=== PATIENT | female | born 1990 | race Caucasian/White ===

== ENCOUNTER 2019-03-26 15:46 | Emergency (ER) | payer OTHER ==
[~2019-03-26] VITALS: Ht 157.5 cm; Wt 88.0 kg
[2019-03-26 16:07] VITALS: BP 136/76
--- NOTE | 2019-03-26 17:33 | NUR ---
PT TO BED 10 WITH STEADY GAIT
--- NOTE | 2019-03-26 17:42 | NUR ---
PT RETURNED FROM XRAY, SITTING IN CHAIR C
--- NOTE | 2019-03-26 17:49 | NUR ---
PT MOVED TO BED 1.
--- NOTE | 2019-03-26 18:23 | NUR ---
pt arrived to ed c/o cough, congestion, chest pain d/t cough x 2 weeks. no sob noted. no resp distress. vs stable. lung sounds clear throughout. nka. no pmh. denies any pain.
[2019-03-26 18:52] VITALS: BP 136/76
--- NOTE | 2019-03-26 18:53 | NUR ---
Patient discharged with v/s stable. Written and verbal after care instructions given and explained. Patient alert, oriented and verbalized understanding of instructions. Ambulatory with steady gait. All questions addressed prior to discharge. ID band removed. Patient advised to follow up with PMD. Rx of SUDAFED, TESSATNAM POWELL, ALBUTEROL given. Patient educated on indication of medication including possible reaction and side effects. Opportunity to ask questions provided and answered.
== END 2019-03-26 18:53 | disposition home or self-care (01) ==
LOC: MED 15:46
DX: R05 Cough (principal)
CPT/HCPCS: 71046; 99283; Q0092

== ENCOUNTER 2019-11-20 12:47 | Emergency (ER) | payer OTHER ==
[~2019-11-20] VITALS: Ht 157.5 cm; Wt 79.4 kg
[2019-11-20 12:50] VITALS: BP 146/96
--- NOTE | 2019-11-20 13:00 | NUR ---
WAIT AT LOBBY. HANDED ON URINE CUP.
--- NOTE | 2019-11-20 13:58 | NUR ---
PT AMBULATED TO BED C
--- NOTE | 2019-11-20 13:59 | NUR ---
Pt taken to critical access hospital bed C.
--- NOTE | 2019-11-20 14:10 | NUR ---
29 Y/O FROM HOME C/O CHEST DISCOMFORT AND LT ARM DISCOMFORT WITH INTERMITTENT SOB X 2 WKS. PT STATES SHE FEELS MORE ANXIOUS THAN USUAL. RR EVEN AND UNLABORED, SITTING UPRIGHT AWAKE AND ALERT. VSS
--- NOTE | 2019-11-20 14:41 | NUR ---
PT SITTING UPRIGHT AWAKE AND ALERT. RR EVEN AND UNLABORED. VSS
--- NOTE | 2019-11-20 14:54 | NUR ---
PT DISCHARED AND LEFT WITHOUT PAPERWORK. GIVEN PRESCRIPTION FOR IBUPROFEN 600MG, LEFT WITHOUT RECEIVING PRESCRIPTION. VSS PRIOR TO PT LEAVING FACILITY
[2019-11-20 14:55] VITALS: BP 136/84
== END 2019-11-20 14:54 | disposition home or self-care (01) ==
LOC: MED 12:47
DX: R07.9 Chest pain, unspecified (principal); R03.0 Elevated blood-pressure reading, without diagnosis of hypertension
CPT/HCPCS: 71045; 93005; 99283

== ENCOUNTER 2020-09-17 21:19 | Emergency (ER) | payer OTHER ==
[~2020-09-17] VITALS: Ht 157.5 cm; Wt 85.5 kg
[2020-09-17 21:25] VITALS: BP 144/101
--- NOTE | 2020-09-17 21:36 | NUR ---
PT AMBULATED TO ED BED 5.
--- NOTE | 2020-09-17 21:48 | NUR ---
Dr. Espinoza examining patient.
[2020-09-17] MEDS ORDERED: LORazepam 2 MG/ML VIAL ONE (22:13)
--- NOTE | 2020-09-17 22:14 | NUR ---
X-Ray at bedside.
[2020-09-17 22:16] LABS: BASOPHILS # (AUTO) 0.1 K/uL (0.00-0.22); BASOPHILS % (AUTO) 1.2 % (0.0-2.0); EOSINOPHILS # (AUTO) 0.2 K/uL (0-0.4); EOSINOPHILS % (AUTO) 2.9 % (0.0-4.0); HEMATOCRIT 39.4 % (36-48); HEMOGLOBIN 13.2 g/dL (12.0-16.0); LYMPHOCYTES # (AUTO) 2.3 K/uL (2.5-16.5); MEAN CORPUSCULAR HEMOGLOBIN 28 pg (27-31); MEAN CORPUSCULAR HGB CONC 34 g/dL (33-37); MEAN CORPUSCULAR VOLUME 83.1 fL (80-94); MONOCYTES # (AUTO) 0.4 K/uL (0.8-1.0); MONOCYTES % (AUTO) 6.9 % (1.7-9.3); NEUTROPHILS # (AUTO) 3.4 K/uL (1.8-7.7); PLATELET COUNT (AUTO) 404 K/uL (140-450); RED BLOOD CELL COUNT(AUTO) 4.75 MIL/uL (4.20-5.40); RED CELL DISTRIBUTION WIDTH 13.2 % (11.6-13.7); WHITE BLOOD COUNT (AUTO) 6.3 K/uL (4.8-10.8)
[2020-09-17 22:31] LABS: PROTHROMBIN TIME 9.4 secs (10.8-13.4)
[2020-09-17 22:32] VITALS: BP 144/101
[2020-09-17 22:33] LABS: ALBUMIN 4.2 g/dL (3.4-5.0); ANION GAP 12.9 (8-16); CARBON DIOXIDE 27.4 mmol/L (21-32); POTASSIUM 3.3 mmol/L (3.5-5.1); TOTAL BILIRUBIN 0.3 mg/dL (0.0-1.0)
[2020-09-17 22:35] LABS: D-DIMER < 100 ng/ml (0-400)
--- NOTE | 2020-09-17 22:35 | NUR ---
see complete assessment.
--- NOTE | 2020-09-17 23:31 | NUR ---
Patient discharged with v/s stable. Written and verbal after care instructions given and explained. Patient verbalized understanding. Ambulatory with steady gait. All questions addressed prior to discharge. Advised to follow up with PMD.
== END 2020-09-17 23:31 | disposition home or self-care (01) ==
LOC: MED 21:19
DX: R00.2 Palpitations (principal); R20.0 Anesthesia of skin; R07.9 Chest pain, unspecified
CPT/HCPCS: 36415; 71045; 80053; 83880; 84484; 84703; 85025; 85379; 85610; 85730; 93005; 99285; J2060

== ENCOUNTER 2023-12-19 06:35 | Inpatient (IN) | payer OTHER ==
[~2023-12-19] VITALS: Ht 157.5 cm; Wt 73.9 kg
[2023-12-19 06:47] VITALS: BP 148/98; PULSE 116; RESP 18; TEMP 98; O2SAT 100
[2023-12-19] MEDS: NACL 0.9% 1,000 ML IV ONE ×2 (07:43→08:38)
[2023-12-19] MEDS: LORazepam 1 MG TAB PO ONE (07:43)
[2023-12-19 07:45] LABS: ANION GAP 17.8 (8-16); CALCIUM 8.8 mg/dL (8.5-10.1); CARBON DIOXIDE 20.5 mmol/L (21-32); CREATININE 1.1 mg/dL (0.6-1.3); POTASSIUM 3.3 mmol/L (3.5-5.1)
[2023-12-19 07:52] LABS: ALANINE AMINOTRANSFERASE 17 U/L (12-78); ALBUMIN 3.6 g/dL (3.4-5.0); ALKALINE PHOSPHATASE 111 U/L (50-136); ASPARTATE AMINOTRANSFERASE 11 U/L (15-37); BILIRUBIN,DIRECT 0.1 mg/dL (0.0-0.3); MAGNESIUM 1.7 mg/dL (1.8-2.4); TOTAL BILIRUBIN 0.4 mg/dL (0.0-1.0); TOTAL PROTEIN, SERUM 7.9 g/dL (6.4-8.2)
[2023-12-19 08:04] LABS: BASOPHILS # (AUTO) 0.1 K/uL (0.00-0.22); BASOPHILS % (AUTO) 1.2 % (0.0-2.0); EOSINOPHILS # (AUTO) 0.1 K/uL (0-0.4); EOSINOPHILS % (AUTO) 2.7 % (0.0-4.0); HEMATOCRIT 40.5 % (36-48); HEMOGLOBIN 13.5 g/dL (12.0-16.0); LYMPHOCYTES # (AUTO) 1.6 K/uL (2.5-16.5); LYMPHOCYTES % (AUTO) 29.1 % (20.5-51.1); MEAN CORPUSCULAR HEMOGLOBIN 27 pg (27-31); MEAN CORPUSCULAR HGB CONC 33 g/dL (33-37); MEAN CORPUSCULAR VOLUME 81.2 fL (80-94); MONOCYTES # (AUTO) 0.3 K/uL (0.8-1.0); MONOCYTES % (AUTO) 5.9 % (1.7-9.3); NEUTROPHILS # (AUTO) 3.4 K/uL (1.8-7.7); NEUTROPHILS % (AUTO) 61.1 % (42.2-75.2); PLATELET COUNT (AUTO) 381 K/uL (140-450); RED BLOOD CELL COUNT(AUTO) 4.99 MIL/uL (4.20-5.40); RED CELL DISTRIBUTION WIDTH 13.4 % (11.6-13.7); WHITE BLOOD COUNT (AUTO) 5.6 K/uL (4.8-10.8)
[2023-12-19 08:36] LABS: APPEARANCE,URINE TURBID (CLEAR); BILIRUBIN,URINE NEGATIVE (NEGATIVE); BLOOD, URINE NEGATIVE (NEGATIVE); COLOR,URINE YELLOW (YELLOW); LEUKOCYTE ESTERASE ,URINE NEGATIVE (NEGATIVE); NITRITE, URINE NEGATIVE (NEGATIVE); PROTEIN,URINE NEGATIVE (NEGATIVE); UGLUCOSE 3+ (NEGATIVE); UROBILINOGEN,URINE 0.2 EU/dL (0.2 - 1)
[2023-12-19] MEDS: POTASSIUM CHLORIDE 20% 40 MEQ/15 ML UDC PO ONE (08:42)
[2023-12-19] MEDS: MAG SULF 2000 MG/WATER PREMIX 50 ML IV ONE (08:44)
[2023-12-19 08:47] LABS: AMPHETAMINE, URINE NEGATIVE ng/ml (NEG <=1000); BARBITURATE, URINE NEGATIVE ng/ml (NEG <=200); BENZODIAZEPINE, URINE NEGATIVE ng/mL (NEG <=200); CANNABINOID, URINE NEGATIVE ng/mL (NEG <=50); COCAINE, URINE NEGATIVE ng/mL (NEG <=300); OPIATE, URINE NEGATIVE ng/mL (NEG <=2000); PHENCYCLIDINE SCREEN,URINE NEGATIVE ng/mL (NEG <=25)
[2023-12-19] MEDS: INSULIN REGULAR, HUMAN 100 UNIT/ML VIAL IVP ONE (09:02)
[2023-12-19] MEDS ORDERED: ACETAMINOPHEN 325 MG TAB PO PRN (09:45)
[2023-12-19] MEDS ORDERED: HYDROcodone/APAP 5/325 MG 1 TAB TAB PO PRN (09:45)
[2023-12-19] MEDS ORDERED: KCL 20 MEQ IN 100 mL PREMIX 200 ML IV PRN (09:45)
[2023-12-19] MEDS ORDERED: ONDANSETRON 4 MG/2 ML VIAL IVP PRN (09:45)
[2023-12-19] MEDS ORDERED: MORPHINE SULFATE 2 MG/ML SYR IVP PRN (09:45)
[2023-12-19 09:48] LABS: ANION GAP 19.8 (8-16); CALCIUM 8.2 mg/dL (8.5-10.1); CARBON DIOXIDE 17.7 mmol/L (21-32); CREATININE 0.9 mg/dL (0.6-1.3); POTASSIUM 4.5 mmol/L (3.5-5.1)
[2023-12-19] MEDS: NACL 0.9% 1,000 ML IV SCH (12:51)
[2023-12-19] MEDS ORDERED: LAMO50TA MM (19:17)
[2023-12-19 21:14] VITALS: BP 146/84; PULSE 103; RESP 18; TEMP 97; O2SAT 97
[2023-12-20] VITALS (7 sets, daily range): BP systolic 116–134; BP diastolic 66–87; PULSE 79–102; RESP 16–18; TEMP 97.4–98.9; O2SAT 96–100
[2023-12-20 06:54] LABS: ALBUMIN 3.6 g/dL (3.4-5.0); ANION GAP 20.7 (8-16); CALCIUM 8.5 mg/dL (8.5-10.1); CREATININE 0.8 mg/dL (0.6-1.3); MAGNESIUM 1.8 mg/dL (1.8-2.4); POTASSIUM 3.7 mmol/L (3.5-5.1); TOTAL BILIRUBIN 0.4 mg/dL (0.0-1.0); TOTAL PROTEIN, SERUM 7.7 g/dL (6.4-8.2)
[2023-12-20] MEDS ORDERED: DEXTROSE 50% 50 ML SYR IVP PRN (08:30)
[2023-12-20 08:53] LABS: BASOPHILS % (AUTO) 0.4 % (0.0-2.0); EOSINOPHILS % (AUTO) 0.4 % (0.0-4.0); HEMATOCRIT 41.1 % (36-48); HEMOGLOBIN 13.5 g/dL (12.0-16.0); LYMPHOCYTES # (AUTO) 1.2 K/uL (2.5-16.5); LYMPHOCYTES % (AUTO) 18.3 % (20.5-51.1); MEAN CORPUSCULAR HEMOGLOBIN 27 pg (27-31); MEAN CORPUSCULAR HGB CONC 33 g/dL (33-37); MEAN CORPUSCULAR VOLUME 82.9 fL (80-94); MONOCYTES # (AUTO) 0.2 K/uL (0.8-1.0); NEUTROPHILS % (AUTO) 77.9 % (42.2-75.2); PLATELET COUNT (AUTO) 379 K/uL (140-450); RED BLOOD CELL COUNT(AUTO) 4.96 MIL/uL (4.20-5.40); RED CELL DISTRIBUTION WIDTH 13.6 % (11.6-13.7); WHITE BLOOD COUNT (AUTO) 6.4 K/uL (4.8-10.8)
[2023-12-20] MEDS: DOCUSATE SODIUM 100 MG GELCAP PO SCH (09:51)
[2023-12-20] MEDS: INSULIN LISPRO SLIDING SCALE 100 UNITS/ML VIAL SUBQ PRN (12:13)
[2023-12-20] MEDS: BLOOD GLUCOSE MONITORING 1 DEV DEV FS SCH (12:20)
[2023-12-20] MEDS: INSULIN LANTUS 100 UNITS/ML 10 ML VIAL SUBQ SCH (14:44)
[2023-12-20] MEDS: MEDS-TO-BEDS MC SCH (21:00)
[2023-12-21 04:00] VITALS: BP 128/78; PULSE 98; RESP 16; TEMP 97; O2SAT 94
[2023-12-21 06:09] LABS: BASOPHILS % (AUTO) 0.4 % (0.0-2.0); EOSINOPHILS # (AUTO) 0.1 K/uL (0-0.4); EOSINOPHILS % (AUTO) 1.3 % (0.0-4.0); HEMATOCRIT 38.2 % (36-48); HEMOGLOBIN 12.7 g/dL (12.0-16.0); LYMPHOCYTES # (AUTO) 1.8 K/uL (2.5-16.5); LYMPHOCYTES % (AUTO) 27.3 % (20.5-51.1); MEAN CORPUSCULAR HEMOGLOBIN 27 pg (27-31); MEAN CORPUSCULAR HGB CONC 33 g/dL (33-37); MEAN CORPUSCULAR VOLUME 81.9 fL (80-94); MONOCYTES # (AUTO) 0.5 K/uL (0.8-1.0); MONOCYTES % (AUTO) 7.6 % (1.7-9.3); NEUTROPHILS # (AUTO) 4.1 K/uL (1.8-7.7); NEUTROPHILS % (AUTO) 63.4 % (42.2-75.2); PLATELET COUNT (AUTO) 341 K/uL (140-450); RED BLOOD CELL COUNT(AUTO) 4.67 MIL/uL (4.20-5.40); RED CELL DISTRIBUTION WIDTH 13.5 % (11.6-13.7); WHITE BLOOD COUNT (AUTO) 6.5 K/uL (4.8-10.8)
[2023-12-21 06:43] LABS: ALBUMIN 3.2 g/dL (3.4-5.0); ANION GAP 19.2 (8-16); CALCIUM 8.5 mg/dL (8.5-10.1); CARBON DIOXIDE 15.9 mmol/L (21-32); CREATININE 0.8 mg/dL (0.6-1.3); MAGNESIUM 1.4 mg/dL (1.8-2.4); POTASSIUM 4.1 mmol/L (3.5-5.1); TOTAL BILIRUBIN 0.3 mg/dL (0.0-1.0); TOTAL PROTEIN, SERUM 7.1 g/dL (6.4-8.2)
[2023-12-21 08:00] VITALS: BP 127/74; PULSE 93; RESP 18; TEMP 98.2; O2SAT 93; O2SAT 98
[2023-12-21] MEDS: MAG SULF 2000 MG/WATER PREMIX 50 ML IV PRN (08:22)
[2023-12-21 11:29] LABS: BLOOD GAS PCO2 23.1 mmHg (35-45); BLOOD GAS PH 7.342 (7.35-7.45); BLOOD GAS PO2 141.7 mmHg (75-100)
[2023-12-21 11:30] LABS: BLOOD GAS BASE EXCESS -11.4 mmol/L (-2.0-2.0); BLOOD GAS HCO3 12.2 mmol/L (22-26); BLOOD GAS O2 SAT% 99.3 % (92.0-98.5)
[2023-12-21 12:00] VITALS: BP 127/74; PULSE 93; RESP 18; TEMP 98.2; O2SAT 93
[2023-12-21] MEDS: SODIUM BICARBONATE 8.4% 100 MEQ in NACL 0.9% 1,000 ML IV SCH (13:06)
[2023-12-21 16:00] VITALS: BP 123/68; PULSE 95; RESP 18; TEMP 98.5; O2SAT 95
[2023-12-21 20:00] VITALS: BP 122/67; PULSE 96; RESP 16; TEMP 98.8; O2SAT 96; O2SAT 99
[2023-12-22] VITALS: BP 128/58; PULSE 92; RESP 16; TEMP 97.8; O2SAT 96
[2023-12-22 06:40] LABS: ALBUMIN 3.1 g/dL (3.4-5.0); ANION GAP 18.2 (8-16); CALCIUM 8.3 mg/dL (8.5-10.1); CARBON DIOXIDE 18.6 mmol/L (21-32); CREATININE 0.7 mg/dL (0.6-1.3); MAGNESIUM 1.5 mg/dL (1.8-2.4); POTASSIUM 3.8 mmol/L (3.5-5.1); TOTAL BILIRUBIN 0.4 mg/dL (0.0-1.0); TOTAL PROTEIN, SERUM 7.1 g/dL (6.4-8.2)
[2023-12-22 07:32] LABS: BASOPHILS % (AUTO) 0.6 % (0.0-2.0); EOSINOPHILS # (AUTO) 0.1 K/uL (0-0.4); EOSINOPHILS % (AUTO) 1.3 % (0.0-4.0); HEMATOCRIT 37.8 % (36-48); HEMOGLOBIN 12.6 g/dL (12.0-16.0); LYMPHOCYTES # (AUTO) 0.8 K/uL (2.5-16.5); LYMPHOCYTES % (AUTO) 14.1 % (20.5-51.1); MEAN CORPUSCULAR HEMOGLOBIN 27 pg (27-31); MEAN CORPUSCULAR HGB CONC 33 g/dL (33-37); MEAN CORPUSCULAR VOLUME 81.8 fL (80-94); MONOCYTES # (AUTO) 0.5 K/uL (0.8-1.0); MONOCYTES % (AUTO) 8.1 % (1.7-9.3); NEUTROPHILS # (AUTO) 4.3 K/uL (1.8-7.7); NEUTROPHILS % (AUTO) 75.9 % (42.2-75.2); PLATELET COUNT (AUTO) 352 K/uL (140-450); RED BLOOD CELL COUNT(AUTO) 4.62 MIL/uL (4.20-5.40); RED CELL DISTRIBUTION WIDTH 13.8 % (11.6-13.7); WHITE BLOOD COUNT (AUTO) 5.6 K/uL (4.8-10.8)
[2023-12-22 08:00] VITALS: BP 127/75; PULSE 100; PULSE 101; RESP 16; TEMP 99.5; O2SAT 100
[2023-12-22 12:00] VITALS: BP 127/75; PULSE 101; RESP 16; TEMP 99.5; O2SAT 100
[2023-12-22 16:00] VITALS: BP 116/64; PULSE 91; RESP 18; TEMP 98.6; O2SAT 98
[2023-12-22 20:00] VITALS: BP 126/88; PULSE 95; RESP 16; TEMP 99.1; O2SAT 98
[2023-12-23 04:00] VITALS: BP 132/84; PULSE 90; RESP 16; TEMP 98.9; O2SAT 98
[2023-12-23 05:46] LABS: BASOPHILS # (AUTO) 0.1 K/uL (0.00-0.22); BASOPHILS % (AUTO) 1.1 % (0.0-2.0); EOSINOPHILS # (AUTO) 0.1 K/uL (0-0.4); EOSINOPHILS % (AUTO) 1.3 % (0.0-4.0); HEMATOCRIT 34.4 % (36-48); HEMOGLOBIN 11.7 g/dL (12.0-16.0); LYMPHOCYTES # (AUTO) 1.1 K/uL (2.5-16.5); LYMPHOCYTES % (AUTO) 21.7 % (20.5-51.1); MEAN CORPUSCULAR HEMOGLOBIN 27 pg (27-31); MEAN CORPUSCULAR HGB CONC 34 g/dL (33-37); MEAN CORPUSCULAR VOLUME 80.4 fL (80-94); MONOCYTES # (AUTO) 0.5 K/uL (0.8-1.0); MONOCYTES % (AUTO) 9.7 % (1.7-9.3); NEUTROPHILS # (AUTO) 3.3 K/uL (1.8-7.7); NEUTROPHILS % (AUTO) 66.2 % (42.2-75.2); PLATELET COUNT (AUTO) 319 K/uL (140-450); RED BLOOD CELL COUNT(AUTO) 4.28 MIL/uL (4.20-5.40); RED CELL DISTRIBUTION WIDTH 13.5 % (11.6-13.7)
[2023-12-23 06:15] LABS: ALBUMIN 2.7 g/dL (3.4-5.0); ANION GAP 13.8 (8-16); CALCIUM 7.8 mg/dL (8.5-10.1); CARBON DIOXIDE 25.4 mmol/L (21-32); CREATININE 0.7 mg/dL (0.6-1.3); MAGNESIUM 1.6 mg/dL (1.8-2.4); POTASSIUM 3.2 mmol/L (3.5-5.1); TOTAL BILIRUBIN 0.3 mg/dL (0.0-1.0); TOTAL PROTEIN, SERUM 6.5 g/dL (6.4-8.2)
[2023-12-23 08:00] VITALS: BP 128/65; PULSE 72; RESP 18; TEMP 97.2; O2SAT 100
[2023-12-23] MEDS: POTASSIUM CHLORIDE 10 MEQ TABER PO PRN (08:41)
[2023-12-23] MEDS: MAGNESIUM OXIDE 400 MG TAB PO PRN (08:42)
[2023-12-23] MEDS ORDERED: LANTUS SUBQ (13:28)
[2023-12-23] MEDS ORDERED: METF-1139 PO (13:28)
[2023-12-23] MEDS ORDERED: [UNRECOGNIZED DRUG - CODE] MC (13:30)
[2023-12-23] MEDS ORDERED: LANC-587 MC (13:30)
[2023-12-23 13:35] VITALS: BP 128/65; PULSE 72; RESP 18; TEMP 97.9
== END 2023-12-23 15:22 | DRG 420 ==
LOC: MED 06:35 → MTU 09:46
PROVIDERS: ADMIT Hospitalist; ATTEND Hospitalist
DX: E11.10 Type 2 diabetes mellitus with ketoacidosis without coma (principal); R00.2 Palpitations; Z79.4 Long term (current) use of insulin; Z91.018 Allergy to other foods
CPT/HCPCS: 36415; 36600; 71275; 80048; 80053; 80076; 80305; 81003; 82803; 82948; 83036; 83735; 84484; 85025; 85379; 87081; 93005; 96361; 96365; 96366; 96375; 99285; J1644; J1815; J3475; J3490; J7030; Q9967